=== PATIENT | male | born 1945 | race Caucasian/White ===

== ENCOUNTER 2017-08-26 12:13 | Emergency (ER) | payer OTHER ==
[~2017-08-26] VITALS: Ht 165.1 cm; Wt 59.5 kg
[2017-08-26] MEDS ORDERED: ASPI-13 PO (13:25)
[2017-08-26] MEDS ORDERED: ATEN25TA PO (13:25)
[2017-08-26] MEDS ORDERED: CLOP75TA52 PO (13:25)
[2017-08-26] MEDS ORDERED: LOVA10TA PO (13:25)
[2017-08-26] MEDS ORDERED: METF500T27 PO (13:25)
[2017-08-26] MEDS ORDERED: SODIUM CHLORIDE FLUSH 10ML SYR IVF ONE (13:30)
[2017-08-26 13:35] LABS: HEMATOCRIT 40.4 % (39.2-51.8); HEMOGLOBIN 13.7 g/dL (13.7-18.0); WHITE BLOOD COUNT 10.2 x10^3/uL (3.4-10)
[2017-08-26 13:47] LABS: BLOOD UREA NITROGEN 16 mg/dL (7-18)
[2017-08-26] MEDS ORDERED: GADOBUTROL 7.5 MMOL/7.5 ML PFS ONE (17:18)
[2017-08-26 19:10] VITALS: BP 108/64
== END 2017-08-26 19:14 | disposition home or self-care (01) ==
LOC: ED 15:28
DX: S22.078A Other fracture of T9-T10 vertebra, initial encounter for closed fracture (principal); S22.088A Other fracture of T11-T12 vertebra, initial encounter for closed fracture; M48.04 Spinal stenosis, thoracic region; M54.5 Low back pain; X58.XXXA Exposure to other specified factors, initial encounter; Y93.89 Activity, other specified; Y92.89 Other specified places as the place of occurrence of the external cause; Y99.9 Unspecified external cause status
CPT/HCPCS: 36415; 72156; 72157; 72158; 80048; 82040; 85025; 99285; A9585

== ENCOUNTER → 2018-05-23 | Outpatient (CLI) | payer OTHER ==
[~2018-05-23] MED LIST: ASPI-13 PO; ATEN-104 PO; ATEN25TA PO; CETI1TAB33 PO; CLOP75TA PO; CLOP75TA52 PO; ENAL5TAB PO; HYDR-3237 PO; IPRA3AMP PO; IPRA4AER PO; LOVA10TA PO; METF500T27 PO; PRED5TAB PO
== END | disposition home or self-care (01) ==
LOC: STAR 14:32
PROVIDERS: ATTEND Surgery Vascular Surgery
DX: Z01.818 Encounter for other preprocedural examination (principal)
CPT/HCPCS: 36415; 80053; 85025; 93005

== ENCOUNTER → 2019-01-04 | Outpatient (CLI) | payer OTHER ==
[~2019-01-04] MED LIST changes: -IPRA3AMP PO; +IPRA3AMP30 PO
== END | disposition home or self-care (01) ==
LOC: CFH 11:51
PROVIDERS: ATTEND Internal Medicine
DX: J45.50 Severe persistent asthma, uncomplicated (principal); R91.8 Other nonspecific abnormal finding of lung field
CPT/HCPCS: 71250

== ENCOUNTER 2019-05-31 15:32 | Outpatient (CLI) | payer OTHER ==
[2019-05-31 16:38] LABS: MEAN CORPUSCULAR HEMOGLOBIN 33.8 pg (27.5-34.5); MEAN CORPUSCULAR HGB CONC 33.3 g/dL (33.2-36.2); MEAN CORPUSCULAR VOLUME 101.5 fL (81-97); MEAN PLATELET VOLUME 8.7 fL (7.4-10.4); PLATELET COUNT 504 x10^3/uL (130-400); RED BLOOD COUNT 3.13 x10^6/uL (4.38-5.82); RED CELL DISTRIBUTION WIDTH 15.2 % (9.4-14.8)
[2019-05-31 16:41] LABS: INTERNATIONAL NORMALIZED RATIO 1.17 (0.93-1.1); PROTHROMBIN TIME 12.2 Seconds (9.6-11.5)
[2019-05-31 16:43] LABS: ALANINE AMINOTRANSFERASE 327 U/L (12-78); ALBUMIN 2.8 g/dL (3.4-5.0); ANION GAP 10 mmol/L (5-15); CHLORIDE 86 mmol/L (98-107)
[2019-05-31 16:58] LABS: ALKALINE PHOSPHATASE 1376 U/L (45-117)
[2019-05-31 17:20] LABS: CREATININE 0.59 mg/dL (0.7-1.3)
[2019-05-31 17:21] LABS: MD YES; TOTAL PROTEIN 6.5 g/dL (6.4-8.2)
[2019-05-31 17:23] LABS: BILIRUBIN,TOTAL 20.3 mg/dL (0.2-1.0)
[2019-05-31 17:30] LABS: EOS#(MANUAL) 0.64 x10^3/uL (0.0-0.4); EOS% (MANUAL) 5 % (1-7); LYMPH#(MANUAL) 1.02 x10^3/uL (1-3.4); LYMPHS% (MANUAL) 8 % (22-44); METAMYELOCYTES# (MANUAL) 0.13 x10^3/uL (0-0); METAMYELOCYTES% (MANUAL) 1 % (0-1); MONOS#(MANUAL) 0.76 x10^3/uL (0.3-2.7); MONOS% (MANUAL) 6 % (2-9); MYELOCYTES# (MANUAL) 0.38 x10^3/uL (0-0); MYELOCYTES% (MANUAL) 3 % (0-0); SEG#(MANUAL) 9.78 x10^3/uL (1.8-6.8); SEGS% (MANUAL) 77 % (42-75)
[2019-05-31 17:31] LABS: <PLATELET ESTIMATE> INCREASED; ANISOCYTOSIS 2+; MICROCYTOSIS 1+
[2019-05-31 17:32] LABS: LARGE PLATELETS 1+
[2019-05-31 17:33] LABS: TARGET CELLS 2+
[2019-05-31] MEDS ORDERED: OMNIPAQUE 350 MG/ML, 100ML BOTTLE ONE (17:44)
[2019-06-13] MEDS ORDERED: HYDR1TAB13 PO (12:00)
== END 2019-05-31 23:59 | disposition home or self-care (01) ==
LOC: RAD 15:32
PROVIDERS: ATTEND Surgery
DX: C24.0 Malignant neoplasm of extrahepatic bile duct (principal); I81 Portal vein thrombosis
CPT/HCPCS: 71260; 74170; 80053; 85025; 85610; Q9967

== ENCOUNTER 2019-06-01 14:11 | Day surgery (SDC) | payer OTHER ==
[~2019-06-01] VITALS: Ht 162.6 cm; Wt 62.2 kg
== END 2019-06-01 18:15 | disposition home or self-care (01) ==
LOC: OR 14:11
PROVIDERS: ATTEND Surgery
DX: C22.1 Intrahepatic bile duct carcinoma (principal); R18.0 Malignant ascites; C78.6 Secondary malignant neoplasm of retroperitoneum and peritoneum; C79.89 Secondary malignant neoplasm of other specified sites; E11.9 Type 2 diabetes mellitus without complications; I10 Essential (primary) hypertension; I69.351 Hemiplegia and hemiparesis following cerebral infarction affecting right dominant side; J44.9 Chronic obstructive pulmonary disease, unspecified; Z79.84 Long term (current) use of oral hypoglycemic drugs; Z79.82 Long term (current) use of aspirin; Z79.899 Other long term (current) drug therapy; Z91.012 Allergy to eggs; Z87.891 Personal history of nicotine dependence
CPT/HCPCS: 49082; 49321; 82962; 86850; 86900; 88112; 88305; 88341; 88342; J0330; J1720; J2405; J2704; J3010; J3490; J0690

== ENCOUNTER 2019-06-06 06:56 | Day surgery (SDC) | payer OTHER ==
[~2019-06-06] VITALS: Ht 162.6 cm; Wt 61.8 kg
[2019-06-06 07:47] VITALS: BP 108/51
[2019-06-06] MEDS ORDERED: LACTATED RINGERS 1,000 ML IV SCH (07:51)
[2019-06-06] MEDS ORDERED: MORP15TA PO (07:56)
[2019-06-06] MEDS ORDERED: PRED5TAB PO (07:56)
[2019-06-06] MEDS ORDERED: ASPI-496 PO (07:56)
[2019-06-06] MEDS ORDERED: PHENERGAN PO (07:56)
[2019-06-06] MEDS ORDERED: DIPH25CA61 PO (08:28)
[2019-06-06] MEDS ORDERED: HOME OXYGEN NS (08:28)
[2019-06-06 08:34] LABS: ALBUMIN 2.2 g/dL (3.4-5.0); ANION GAP 10 mmol/L (5-15); CALCIUM 8.3 mg/dL (8.5-10.1); CHLORIDE 89 mmol/L (98-107)
[2019-06-06 08:49] LABS: ALANINE AMINOTRANSFERASE 311 U/L (12-78); ALKALINE PHOSPHATASE 1425 U/L (45-117)
[2019-06-06 09:06] LABS: CREATININE 0.55 mg/dL (0.7-1.3); TOTAL PROTEIN 5.5 g/dL (6.4-8.2)
[2019-06-06 09:07] LABS: BILIRUBIN,TOTAL 21.5 mg/dL (0.2-1.0)
[2019-06-06] MEDS ORDERED: FENTANYL PF 100 MCG/2ML ONE (09:25)
[2019-06-06] MEDS ORDERED: PIPERACILLIN/TAZO/PMX 3.375GM 50 ML ONE (09:40)
[2019-06-06] MEDS ORDERED: GLYCOPYRROLATE 0.2MG/1ML, 5ML ONE (10:18)
[2019-06-06] MEDS ORDERED: SUCCINYLCHOLINE 20 MG/ML, 10ML ONE (10:18)
[2019-06-06] MEDS ORDERED: DEXAMETHASONE 4 MG/ML, 1ML ONE (10:18)
[2019-06-06] MEDS ORDERED: ONDANSETRON 2MG/ML, 2ML ONE (10:18)
[2019-06-06] MEDS ORDERED: CEFAZOLIN 1,000 MG ONE (10:18)
[2019-06-06] MEDS ORDERED: NEOSTIGMINE 1 MG/ML, 10ML ONE (10:18)
[2019-06-06] MEDS ORDERED: ROCURONIUM 10MG/ML,5ML ONE (10:18)
[2019-06-06] MEDS ORDERED: PROPOFOL 10 MG/ML, 20ML ONE (10:18)
[2019-06-06] MEDS ORDERED: LIDOCAINE-MPF 2% ,5ML ONE (10:18)
[2019-06-06] MEDS ORDERED: HYDROmorphone 2 MG/ML, 1ML IVPush PRN (10:30)
[2019-06-06] MEDS ORDERED: PROMETHAZINE 25 MG/ML, 1ML IV PRN (10:30)
[2019-06-06] MEDS ORDERED: OXYcodone 5 MG/5 ML ORAL.SOL UDC PO PRN (10:30)
[2019-06-06] MEDS ORDERED: FENTANYL PF 100 MCG/2ML IV PRN (10:30)
[2019-06-06] MEDS ORDERED: ONDANSETRON 2MG/ML, 2ML IV PRN (10:30)
[2019-06-06] MEDS ORDERED: ACETAMINOPHEN 325 MG TABLET PO PRN (10:30)
[2019-06-06] MEDS ORDERED: ONDANSETRON ODT 8 MG PO PRN (10:30)
[2019-06-06] MEDS ORDERED: PROMETHAZINE 25 MG SUPP PR PRN (10:30)
[2019-06-06] MEDS ORDERED: ALBUTEROL/IPRATROPIUM 2.5MG/0.5MG, 3 ML ONE (11:07)
[2019-06-06] MEDS ORDERED: ALBUTEROL/IPRATROPIUM 2.5MG/0.5MG, 3 ML NPPB PRN (11:30)
== END 2019-06-06 13:05 | disposition home or self-care (01) ==
LOC: OUT 06:56
PROVIDERS: ATTEND Internal Medicine Geriatric Medicine
DX: C24.0 Malignant neoplasm of extrahepatic bile duct (principal); K83.1 Obstruction of bile duct; E78.5 Hyperlipidemia, unspecified; J44.9 Chronic obstructive pulmonary disease, unspecified; I10 Essential (primary) hypertension; E11.9 Type 2 diabetes mellitus without complications; F41.9 Anxiety disorder, unspecified; F17.210 Nicotine dependence, cigarettes, uncomplicated; Z79.899 Other long term (current) drug therapy; Z87.39 Personal history of other diseases of the musculoskeletal system and connective tissue; Z98.890 Other specified postprocedural states; Z72.89 Other problems related to lifestyle; Z79.84 Long term (current) use of oral hypoglycemic drugs
CPT/HCPCS: 36415; 43276; 43277; 74328; 80053; 82962; 93005; 94640; C1769; C1894; C2625; J0330; J0690; J1100; J2405; J2543; J2704; J2710; J3010; J7120; J7620

== ENCOUNTER 2019-06-13 10:32 | Inpatient (IN) | payer OTHER ==
[~2019-06-13] VITALS: Ht 160 cm; Wt 65.8 kg
[2019-06-15 06:40] VITALS: BP 135/68
== END 2019-06-15 15:19 | disposition home or self-care (01) | DRG 435 ==
LOC: OUT 10:32 → ORIP 17:16 → 4NOR 18:01 → INTOOBSV 06-14 09:21 → OBSVTOIN 06-14 09:21
PROVIDERS: ADMIT Family Medicine; ATTEND Family Medicine
PROC: 0FPB8DZ Removal of Intraluminal Device from Hepatobiliary Duct, Via Natural or Artificial Opening Endoscopic (ICD-10-PCS; principal; 2019-06-14)
PROC: 0F758DZ Dilation of Right Hepatic Duct with Intraluminal Device, Via Natural or Artificial Opening Endoscopic (ICD-10-PCS; 2019-06-14)
PROC: BF111ZZ Fluoroscopy of Biliary and Pancreatic Ducts using Low Osmolar Contrast (ICD-10-PCS; 2019-06-14)
PROC: 0W9G3ZZ Drainage of Peritoneal Cavity, Percutaneous Approach (ICD-10-PCS; 2019-06-14)
DX: C22.1 Intrahepatic bile duct carcinoma (principal); K83.1 Obstruction of bile duct; R18.0 Malignant ascites; C78.6 Secondary malignant neoplasm of retroperitoneum and peritoneum; J98.11 Atelectasis; Z91.012 Allergy to eggs; Z82.49 Family history of ischemic heart disease and other diseases of the circulatory system; Z86.73 Personal history of transient ischemic attack (TIA), and cerebral infarction without residual deficits; Z87.891 Personal history of nicotine dependence; E78.5 Hyperlipidemia, unspecified; I10 Essential (primary) hypertension; J44.9 Chronic obstructive pulmonary disease, unspecified; E11.9 Type 2 diabetes mellitus without complications; D72.829 Elevated white blood cell count, unspecified; Z83.3 Family history of diabetes mellitus; Z82.0 Family history of epilepsy and other diseases of the nervous system; Z80.8 Family history of malignant neoplasm of other organs or systems
CPT/HCPCS: 36415; 49083; 70553; 74018; 74177; 74328; 76705; 80053; 82962; 83735; 84100; 85025; 94640; A9585; G0378; J0295; J0690; J1100; J1170; J2405; J2704; J2710; J3010; J7620; J7626; Q9967; C1725; C1769; C1876; J0330; J0360; J2270; J2930; J7120; J7512; Q0163